=== PATIENT | male | born 1960 | race Two or more races ===

== ENCOUNTER → 2024-04-21 | Emergency (ER) | payer OTHER ==
[~2024-04-21] VITALS: Ht 167.6 cm; Wt 65.8 kg
[~2024-04-21] MED LIST: ZESTRIL10 M1 PO
== END | disposition left against medical advice (07) ==
LOC: ER 07:00
DX: Z53.21 Procedure and treatment not carried out due to patient leaving prior to being seen by health care provider (principal)